=== PATIENT | female | born 1975 | race Caucasian/White ===

== ENCOUNTER 2020-10-12 22:10 | Emergency (ER) | payer OTHER ==
[~2020-10-12] VITALS: Ht 175.3 cm; Wt 84.4 kg
[2020-10-13] MEDS ORDERED: DIPHENHYDRAMINE50 MG PO (00:11)
[2020-10-13] MEDS ORDERED: OXYC10TA19 PO (00:12)
== END 2020-10-13 00:42 | disposition home or self-care (01) ==
LOC: ER 22:10
DX: S29.011A Strain of muscle and tendon of front wall of thorax, initial encounter (principal); Z91.011 Allergy to milk products; Z88.0 Allergy status to penicillin; Z91.030 Bee allergy status; Z91.012 Allergy to eggs; Z91.018 Allergy to other foods; V49.50XA Passenger injured in collision with unspecified motor vehicles in traffic accident, initial encounter; Y92.410 Unspecified street and highway as the place of occurrence of the external cause
CPT/HCPCS: 71046; 99284-25